=== PATIENT | female | born 1980 | race Caucasian/White ===

== ENCOUNTER 2018-12-09 20:37 | Emergency (ER) | payer OTHER ==
[~2018-12-09] VITALS: Ht 160 cm; Wt 77.3 kg
[2018-12-09 20:40] VITALS: Ht 160 cm; Wt 77.3 kg
[2018-12-09] MEDS ORDERED: IBUPROFEN 800 MG TAB PO ONE (21:00)
[2018-12-09] MEDS ORDERED: IBUP800T48 PO (21:48)
[2018-12-09] MEDS ORDERED: HYDR-4011 PO (21:48)
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
[2018-12-09 21:58] VITALS: BP 117/86; PULSE 81; RESP 19
[2018-12-09] MEDS ORDERED: HYDROCODONE/APAP (5/325) TAB PO ONE (22:00)
== END 2018-12-09 22:10 | disposition home or self-care (01) ==
LOC: E/R 20:37
DX: S62.640A Nondisplaced fracture of proximal phalanx of right index finger, initial encounter for closed fracture (principal); Y04.0XXA Assault by unarmed brawl or fight, initial encounter
CPT/HCPCS: 73140